=== PATIENT | male | born 1935 | race Caucasian/White ===

== ENCOUNTER 2020-08-25 11:36 | Outpatient (REF) | payer MEDICARE, SELFPAY | END 2020-08-25 11:37 | disposition home or self-care (01) | LOC: HO.HOSX 11:36 | PROVIDERS: Visit Provider Orthopaedic Surgery | DX: Z13.89 Encounter for screening for other disorder (principal) ==

== ENCOUNTER 2020-08-26 11:52 | Outpatient (REF) | payer MEDICARE, SELFPAY ==
--- NOTE | 2020-08-26 12:30 | XR_ITS ---
EXAMINATION: XR PELVIS CLINICAL INFORMATION: Hip pain. COMPARISON: 08/25/2019 TECHNIQUE: AP view of the pelvis. 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 Satisfactory articulation and alignment of the arthroplasty components. No radiographic evidence of hardware failure. No acute fractures. Degenerative changes in the lower lumbar spine. Bilateral SI joints appear symmetric and unremarkable. XR/XR pelvis 1-2V IMPRESSION: Bilateral hip arthroplasties, stable in appearance, with satisfactory alignment.
== END 2020-08-26 11:53 | disposition home or self-care (01) ==
LOC: HO.HOSX 11:52
PROVIDERS: PCP Internal Medicine; Visit Provider Orthopaedic Surgery
DX: M25.559 Pain in unspecified hip (principal); Z96.642 Presence of left artificial hip joint; Z96.641 Presence of right artificial hip joint
CPT/HCPCS: 72170; 99212